=== PATIENT | female | born 1975 | race Caucasian/White ===

== ENCOUNTER 2016-11-16 15:30 | Emergency (ER) | payer OTHER ==
[2016-11-16 15:43] VITALS: BP 116/72; PULSE 75; RESP 16; TEMP 98.4
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
== END 2016-11-16 16:16 | disposition home or self-care (01) ==
LOC: EC 15:30
DX: K08.89 Other specified disorders of teeth and supporting structures (principal); J01.00 Acute maxillary sinusitis, unspecified; F17.200 Nicotine dependence, unspecified, uncomplicated; Z91.048 Other nonmedicinal substance allergy status
CPT/HCPCS: 99283

== ENCOUNTER 2017-05-28 22:58 | Emergency (ER) | payer OTHER ==
[2017-05-28 23:04] VITALS: RESP 18; TEMP 97.2
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
[2017-05-28 23:50] VITALS: BP 128/63; PULSE 88
== END 2017-05-29 00:10 | disposition home or self-care (01) ==
LOC: EC 22:58
DX: T40.1X1A Poisoning by heroin, accidental (unintentional), initial encounter (principal); F17.200 Nicotine dependence, unspecified, uncomplicated; Z91.048 Other nonmedicinal substance allergy status
CPT/HCPCS: 99284

== ENCOUNTER 2017-11-05 22:43 | Observation (INO) | payer OTHER ==
[2017-11-05] MEDS ORDERED: SODIUM CHLORIDE 0.9% 1,000 ML IV STA (23:14)
[2017-11-05] MEDS ORDERED: KETOROLAC 30 MG/ML 1 ML VIAL IVP STA (23:15)
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
[2017-11-05 23:59] LABS: Basophils # (A) 0.1 k/uL (0-0.2); Basophils % (A) 0 %; Eosinophils # (A) 0.2 k/uL (0-0.7); Eosinophils % (A) 1 %; HGB 13.7 gm/dL (11.4-16.0); Lymphocytes # (A) 2.6 k/uL (1.0-4.8); Lymphocytes % (A) 13 %; MCH 29.4 pg (25.0-35.0); MCHC 33.4 g/dL (31.0-37.0); MCV 88.1 fL (80.0-100.0); Mean Platelet Volume 7.2; Monocytes # (A) 0.4 k/uL (0-1.0); Monocytes % (A) 2 %; Neutrophils # (A) 17.2 k/uL (1.3-7.7); Neutrophils % (A) 83 %; Platelet Count 525 k/uL (150-450); RBC 4.66 m/uL (3.80-5.40); RDW 13.8 % (11.5-15.5); WBC 20.6 k/uL (3.8-10.6)
[2017-11-06] LABS: Appearance,Urine Cloudy (Clear); Bacteria,Urine Rare /hpf; Bilirubin,Urine Negative (Negative); Blood,Urine Moderate (Negative); Color,Urine Yellow; Glucose,Urine (UA) Negative (Negative); Ketones,Urine Negative (Negative); Leukocyte Esterase,Urine Large (Negative); Mucus,Urine Rare /hpf; Nitrite,Urine Negative (Negative); PH, Urine 5.5 (5.0-8.0); Protein,Urine Trace (Negative); RBC,Urine 70 /hpf (0-5); Specific Gravity,Urine 1.024 (1.001-1.035); Squamous Epithelial Cell,Urine 8 /hpf (0-4); WBC,Urine 47 /hpf (0-5)
[2017-11-06 00:07] LABS: ALT 42 U/L (9-52); AST 29 U/L (14-36); Albumin 4.4 g/dL (3.5-5.0); Alkaline Phosphatase 85 U/L (38-126); Amylase 47 U/L (30-110); Anion Gap 16 mmol/L; Blood Urea Nitrogen 19 mg/dL (7-17); Calcium 9.9 mg/dL (8.4-10.2); Carbon Dioxide 26 mmol/L (22-30); Chloride 101 mmol/L (98-107); Glucose 61 mg/dL (74-99); Lipase 26 U/L (23-300); Sodium 143 mmol/L (137-145); Total Bilirubin 0.4 mg/dL (0.2-1.3); Total Protein 8.2 g/dL (6.3-8.2)
[2017-11-06] MEDS ORDERED: cefTRIAXone 2,000 MG in SODIUM CHLORIDE 0.9% 100 ML IVPB STA (00:31)
[2017-11-06] MEDS ORDERED: cefTRIAXone IN SWFI 2,000 MG/20 ML SYRINGE IVP ONE (00:45)
--- NOTE | 2017-11-06 01:00 | CT ---
EXAMINATION TYPE: CT abdomen pelvis wo con DATE OF EXAM: 11/06/2017 COMPARISON: 01/10/2010 HISTORY: No prior, left flank pain, renal stone protocol CT DLP: 310.80 mGycm Automated exposure control for dose reduction was used. TECHNIQUE: Helical acquisition of images was performed from the lung bases through the pelvis. FINDINGS: Lung bases are clear. There is no pleural effusion. Heart size is normal. There is no pericardial eff usion. Liver spleen pancreas gallbladder appear normal. Bile ducts are not dilated. There is no adren al mass. There are several bilateral renal calculi. There is left-sided hydronephrosis. There is 4 mm calcification in the pelvis on the left side there is probably a stone in the distal left ureter. Th ere is no intestinal wall thickening. There are no dilated loops. There is no hydronephrosis on the r ight side. There is no retroperitoneal adenopathy. There is no ascites. Uterus is retroverted. There is disc space narrowing at L5-S1. There is no focal bone destruction. Appendix appears normal. IMPRESSION: THERE IS LEFT-SIDED HYDRONEPHROSIS. SEVERAL BILATERAL RENAL CALCULI. THERE IS PROBABLY A OBSTRUCTING CALCULUS IN THE DISTAL LEFT URETER. NORMAL APPENDIX.
[2017-11-06] MEDS ORDERED: MORPHINE SULFATE 2 MG/ML SYRINGE IVP STA (01:35)
[2017-11-06] MEDS ORDERED: ACETAMINOPHEN TAB 500 MG TAB PO STA (01:35)
[2017-11-06] MEDS ORDERED: LEVOFLOXACIN 500MG-D5W PMX 500 MG in DEXTROSE/WATER 1 100ML.BAG IVPB STA (01:49)
[2017-11-06] MEDS ORDERED: NALOXONE 0.4 MG/ML 1 ML VIAL IV PRN (01:49)
[2017-11-06] MEDS ORDERED: ONDANSETRON 4 MG/2 ML VIAL IVP PRN (01:49)
[2017-11-06] MEDS ORDERED: LEVOFLOXACIN 500MG-D5W PMX 500 MG in DEXTROSE/WATER 1 100ML.BAG IVPB SCH ×2 (02:00→23:00)
[2017-11-06] MEDS ORDERED: ACETAMINOPHEN TAB 325 MG TAB PO PRN (02:23)
[2017-11-06 06:39] VITALS: RESP 16
[2017-11-06] MEDS: 0.9% NACL WITH KCL 20 MEQ/L 1,000 ML IV SCH ×2 (07:08→22:36)
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
[2017-11-06] MEDS: GABAPENTIN 400 MG CAP PO SCH ×2 (10:00→21:26)
[2017-11-06] MEDS: FLUoxetine HCL 20 MG CAP PO SCH (10:01)
[2017-11-06] MEDS: KETOROLAC 30 MG/ML 1 ML VIAL IVP PRN ×3 (10:06→21:24)
[2017-11-06] MEDS: LEVOFLOXACIN 500 MG TAB PO SCH (21:26)
[2017-11-06] MEDS ORDERED: HYDROcodone/APAP 5-325MG 1 EACH TAB PO PRN (22:52)
[2017-11-06] MEDS: MORPHINE SULFATE 2 MG/ML SYRINGE IV PRN (22:57)
[2017-11-07] MEDS: MORPHINE SULFATE 2 MG/ML SYRINGE IV PRN (05:50)
[2017-11-07] MEDS: LEVOTHYROXINE 50 MCG TAB PO SCH (06:08)
[2017-11-07 06:54] LABS: Basophils # (A) 0.1 k/uL (0-0.2); Basophils % (A) 0 %; Eosinophils # (A) 0.1 k/uL (0-0.7); Eosinophils % (A) 1 %; HCT 35.1 % (34.0-46.0); HGB 11.4 gm/dL (11.4-16.0); Lymphocytes # (A) 1.8 k/uL (1.0-4.8); Lymphocytes % (A) 9 %; MCH 29.3 pg (25.0-35.0); MCHC 32.6 g/dL (31.0-37.0); MCV 89.8 fL (80.0-100.0); Mean Platelet Volume 7.4; Monocytes # (A) 0.9 k/uL (0-1.0); Monocytes % (A) 4 %; Neutrophils # (A) 17.2 k/uL (1.3-7.7); Neutrophils % (A) 85 %; Platelet Count 433 k/uL (150-450); RBC 3.91 m/uL (3.80-5.40); RDW 14.1 % (11.5-15.5); WBC 20.1 k/uL (3.8-10.6)
[2017-11-07 07:13] LABS: Calcium 8.8 mg/dL (8.4-10.2); Potassium 4.9 mmol/L (3.5-5.1); Total Bilirubin 0.3 mg/dL (0.2-1.3); Total Protein 5.9 g/dL (6.3-8.2)
--- NOTE | 2017-11-07 07:50 | P.PN ---
Progress Note - Text Progress Note Date: 11/07/17 The patient was more comfortable through the day yesterday and was afebrile but yesterday evening and last night had increased left flank pain and a temperature as high as 100.8 early this morning. The patient did pass a calculus early this morning and feels better. Her white blood count remains elevated at 20,000. In view of passage of her ureteral calculus placement of a double-J catheter will not be necessary. The patient will be continued on Levaquin pending results of her blood and urine cultures.
[2017-11-07] MEDS: FLUoxetine HCL 20 MG CAP PO SCH (09:46)
[2017-11-07] MEDS: GABAPENTIN 400 MG CAP PO SCH ×2 (09:46→20:04)
[2017-11-07] MEDS: KETOROLAC 30 MG/ML 1 ML VIAL IVP PRN ×3 (09:47→23:29)
[2017-11-07] MEDS: LEVOFLOXACIN 500 MG TAB PO SCH (20:04)
[2017-11-07] MEDS: 0.9% NACL WITH KCL 20 MEQ/L 1,000 ML IV SCH (20:04)
[2017-11-08] MEDS: LEVOTHYROXINE 50 MCG TAB PO SCH (05:28)
[2017-11-08 05:52] VITALS: BP 101/63; PULSE 75; TEMP 99.5
[2017-11-08] MEDS: FLUoxetine HCL 20 MG CAP PO SCH (08:50)
[2017-11-08] MEDS: GABAPENTIN 400 MG CAP PO SCH (08:50)
[2017-11-08] MEDS: KETOROLAC 30 MG/ML 1 ML VIAL IVP PRN (09:01)
--- NOTE | 2017-11-08 12:50 | P.DS ---
Providers Date of admission: 11/06/17 01:42 Attending physician: Alen Marques Primary care physician: Jacklyn Guerra [facility] Course: This 42-year-old female was admitted the hospital with a left ureteral stone and a urinary tract infection. The stone was small and fortunately passed up. She did grow E. coli and is been on culture specific antibiotics. She feels much better this morning. She'll be discharged home. She'll follow-up in the office with came her in one week. She'll be given a prescription of Bactrim. She was instructed to call the office if there are any problems. Patient Condition at Discharge: Good Plan - Discharge Summary Discharge Rx Participant: No New Discharge Prescriptions: New Sulfamethox-Tmp 800-160Mg [Bactrim DS 800-160 mg] 1 tab PO Q12HR #30 tab RX: Ibuprofen 800 mg PO Q8HR PRN #30 tablet PRN Reason: Pain No Action Gabapentin [Neurontin] 400 mg PO BID Levothyroxine Sodium [Synthroid] 50 mcg PO DAILY FLUoxetine HCL [PROzac] 40 mg PO DAILY Discharge Medication List FLUoxetine HCL [PROzac] 40 mg PO DAILY 11/05/17 [History] Gabapentin [Neurontin] 400 mg PO BID 11/05/17 [History] Levothyroxine Sodium [Synthroid] 50 mcg PO DAILY 11/05/17 [History] RX: Ibuprofen 800 mg PO Q8HR PRN #30 tablet 11/08/17 [Rx] Sulfamethox-Tmp 800-160Mg [Bactrim DS 800-160 mg] 1 tab PO Q12HR #30 tab [Rx] Follow up Appointment(s)/Referral(s): Mari Villasenor MD [Primary Care Provider] - 1-2 days Alen Marques MD [STAFF PHYSICIAN] - 1 Week Activity/Diet/Wound Care/Special Instructions: activity as tolerated continue regular diet Discharge Disposition: HOME SELF-CARE
[2017-11-08] MEDS: 0.9% NACL WITH KCL 20 MEQ/L 1,000 ML IV SCH (13:50)
== END 2017-11-08 14:19 | disposition home or self-care (01) ==
LOC: EC 22:43 → 4MS4W 11-06 01:42 → INTOOBSV 11-06 01:42 → UNDODISIN 11-08 14:19
PROVIDERS: ADMIT Urology; ATTEND Urology
DX: N13.6 Pyonephrosis (principal); B96.20 Unspecified Escherichia coli [E. coli] as the cause of diseases classified elsewhere; F32.9 Major depressive disorder, single episode, unspecified; F41.9 Anxiety disorder, unspecified; E07.9 Disorder of thyroid, unspecified; F11.10 Opioid abuse, uncomplicated; F17.210 Nicotine dependence, cigarettes, uncomplicated; Z79.899 Other long term (current) drug therapy; Z79.890 Hormone replacement therapy; Z88.8 Allergy status to other drugs, medicaments and biological substances; Z91.048 Other nonmedicinal substance allergy status; Z81.8 Family history of other mental and behavioral disorders; Z83.49 Family history of other endocrine, nutritional and metabolic diseases
CPT/HCPCS: 96376 ×3; 96366 ×2; 96367; 96361; 96365; 96375 ×2; 99284; 36415 ×2; 80053 ×2; 82150; 83605 ×2; 83690; 85025 ×2; 81001; 81025; 87040; 87086; 87077; 87186; 74176; G0378 ×3; J1956; J0696; J1885 ×4; J2270 ×2

== ENCOUNTER 2018-05-14 16:18 | Emergency (ER) | payer OTHER ==
[2018-05-14 16:28] VITALS: BP 113/74; PULSE 87; RESP 16; TEMP 98.1
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
== END 2018-05-14 18:36 | disposition home or self-care (01) ==
LOC: EC 16:18
DX: K04.7 Periapical abscess without sinus (principal); K08.89 Other specified disorders of teeth and supporting structures; E07.9 Disorder of thyroid, unspecified; F41.9 Anxiety disorder, unspecified; F32.9 Major depressive disorder, single episode, unspecified; F17.200 Nicotine dependence, unspecified, uncomplicated; Z79.899 Other long term (current) drug therapy; Z91.048 Other nonmedicinal substance allergy status
CPT/HCPCS: 99283